=== PATIENT | male | born 1980 | race Caucasian/White ===

== ENCOUNTER 2016-08-04 13:30 | Emergency (ER) | payer OTHER ==
[~2016-08-04] VITALS: Ht 193 cm; Wt 113.4 kg
--- NOTE | ~2016-08-04 | EKG ---
[place], [place] ELECTROCARDIOGRAM REPORT NAME: JENNY MCKINNEY UNIT #: [id number] ROOM: DOCTOR: REZA COPPOLA MD BIRTHDATE: [birth year] DOS: 08/04/2016 TIME: 1349 hours. Normal sinus rhythm at 86 beats per minute. The tracing is normal. No previous tracing is available for comparison. REZA COPPOLA MD CM:EKGRPT:ELECTROCARDIOGRAM REPORT [id number] REZA COPPOLA MD
[~2016-08-04 13:30] MED LIST: ANAPROX DS550 MG PO; CLINDAMYCIN HC300 MG PO; CYCLOBENZAPRINE5 M3 PO; LEVAQUIN750 M1 PO; Motrin,Rufen800 MG PO; NASONEX0.05 MG/AC NAS
[2016-08-04 13:53] LABS: BASO # 0.1 10*3/uL (0.0-0.1); BASO % 0.7 % (0.0-1.0); EOS # 0.3 10*3/uL (0.0-0.4); EOS % 3.7 % (1.0-4.0); HEMATOCRIT 47.3 % (42.0-52.0); HEMOGLOBIN 16.4 g/dl (14.0-18.0); LYMPH # 2.1 10*3/uL (1.3-4.4); LYMPH % 29.7 % (27.0-41.0); MEAN CELL VOLUME 83.7 fl (80.0-94.0); MEAN CORPUSCULAR HGB CONC 34.7 g/dl (33.0-37.0); MEAN PLATELET VOLUME 10.8 fl (9.6-12.3); MONO # 0.6 10*3/uL (0.1-1.0); MONO % 8.2 % (3.0-9.0); NEUT % 57.3 % (47.0-73.0); PLATELET COUNT AUTOMATED 183 10*3/uL (130-400); RED BLOOD COUNT 5.65 10*6/uL (4.50-5.90); RED CELL DISTRI WIDTH 12.9 % (0-14.5)
[2016-08-04 14:08] LABS: ALBUMIN 3.8 gm/dl (3.1-4.5); ALKALINE PHOSPHATASE 58 U/L (45-117); BILIRUBIN, TOTAL 0.5 mg/dl (0.2-1.0); BUN 12 mg/dl (7-24); CARBON DIOXIDE 26 mmol/L (21-32); CHLORIDE 108 mmol/L (98-107); EST GLOM FILT AFRICAN AMERICAN > 60 ml/min; GLUCOSE 115 mg/dL (65-99); POTASSIUM 3.8 mmol/L (3.5-5.1); SGOT/AST 33 IU/L (3-35); SGPT/ALT 64 U/L (12-78); SODIUM 144 mmol/L (136-145); TOTAL PROTEIN 7.5 gm/dL (6.4-8.2)
[2016-08-04 14:20] LABS: TROPONIN I < 0.015 ng/ml (<0.5)
[2016-08-04] MEDS ORDERED: DRAMAMINE LESS25 MG PO (14:55)
== END 2016-08-04 15:12 | disposition home or self-care (01) ==
LOC: ED 13:30
PROVIDERS: Nurse Practitioner Family
DX: R42 Dizziness and giddiness (principal); R03.0 Elevated blood-pressure reading, without diagnosis of hypertension

== ENCOUNTER 2016-11-16 07:08 | Emergency (ER) | payer OTHER ==
[~2016-11-16] VITALS: Ht 195.5 cm; Wt 106.6 kg
[~2016-11-16 07:08] MED LIST changes: +DRAMAMINE LESS25 MG PO
== END 2016-11-16 08:04 | disposition home or self-care (01) ==
LOC: ED 07:08
DX: T15.92XA Foreign body on external eye, part unspecified, left eye, initial encounter (principal); Y92.9 Unspecified place or not applicable

== ENCOUNTER → 2017-01-19 | Outpatient (CLI) | payer OTHER | END | disposition home or self-care (01) | LOC: US 17:07 | DX: R53.83 Other fatigue (principal); R79.89 Other specified abnormal findings of blood chemistry ==

== ENCOUNTER 2017-04-21 21:11 | Emergency (ER) | payer OTHER ==
[~2017-04-21] VITALS: Ht 195.5 cm; Wt 106.6 kg
[2017-04-21] MEDS ORDERED: ANAPROX DS550 MG PO (22:30)
== END 2017-04-21 23:21 | disposition home or self-care (01) ==
LOC: ED 21:11
DX: S20.229A Contusion of unspecified back wall of thorax, initial encounter (principal); W18.39XA Other fall on same level, initial encounter; Y93.89 Activity, other specified; Y92.89 Other specified places as the place of occurrence of the external cause; Y99.8 Other external cause status

== ENCOUNTER 2018-01-12 06:08 | Emergency (ER) | payer SELFPAY ==
[~2018-01-12] VITALS: Ht 195.5 cm; Wt 106.6 kg
[2018-01-12] MEDS ORDERED: CYCLOBENZAPRINE10 MG PO (06:21)
[2018-01-12] MEDS ORDERED: PREDNISONE50 MG PO (06:21)
[2018-01-12] MEDS ORDERED: IBU800 MG PO (06:21)
== END 2018-01-12 06:49 | disposition home or self-care (01) ==
LOC: ED 06:08
DX: M54.6 Pain in thoracic spine (principal); R20.0 Anesthesia of skin; Z90.49 Acquired absence of other specified parts of digestive tract

== ENCOUNTER 2018-01-20 11:55 | Emergency (ER) | payer BC ==
[~2018-01-20] VITALS: Ht 195.5 cm; Wt 106.6 kg
[~2018-01-20 11:55] MED LIST changes: +CYCLOBENZAPRINE10 MG PO; +IBU800 MG PO; +PREDNISONE50 MG PO
[2018-01-20 12:30] LABS: BASO # 0.1 10*3/uL (0.0-0.1); BASO % 0.8 % (0.0-1.0); EOS # 0.3 10*3/uL (0.0-0.4); EOS % 3.2 % (1.0-4.0); HEMATOCRIT 46.8 % (42.0-52.0); HEMOGLOBIN 16.1 g/dl (14.0-18.0); LYMPH # 1.9 10*3/uL (1.3-4.4); LYMPH % 24.1 % (27.0-41.0); MEAN CELL VOLUME 84.8 fl (80.0-94.0); MEAN CORPUSCULAR HGB 29.2 pg (27.0-31.0); MEAN CORPUSCULAR HGB CONC 34.4 g/dl (33.0-37.0); MEAN PLATELET VOLUME 11.5 fl (9.6-12.3); MONO # 0.6 10*3/uL (0.1-1.0); MONO % 7.8 % (3.0-9.0); NEUT % 63.8 % (47.0-73.0); PLATELET COUNT AUTOMATED 183 10*3/uL (130-400); RED BLOOD COUNT 5.52 10*6/uL (4.50-5.90); RED CELL DISTRI WIDTH 13.2 % (0-14.5); WHITE BLOOD COUNT 7.8 10*3/uL (4.8-10.8)
[2018-01-20 13:37] LABS: ALBUMIN 3.4 gm/dl (3.1-4.5); ALKALINE PHOSPHATASE 44 U/L (45-117); BUN 17 mg/dl (7-24); CHLORIDE 108 mmol/L (98-107); CREATININE 1.22 mg/dL (0.70-1.30); LIPASE 124 U/L (73-393); SGOT/AST 35 IU/L (3-35); SGPT/ALT 47 U/L (12-78); SODIUM 142 mmol/L (136-145); TOTAL PROTEIN 6.3 gm/dL (6.4-8.2)
[2018-01-20] MEDS ORDERED: Motrin,Rufen800 MG PO (14:09)
== END 2018-01-20 14:10 | disposition home or self-care (01) ==
LOC: ED 11:55
PROVIDERS: Emergency Medicine
DX: R51 Headache (principal); M54.2 Cervicalgia; R42 Dizziness and giddiness; Z79.899 Other long term (current) drug therapy; Z90.49 Acquired absence of other specified parts of digestive tract

== ENCOUNTER 2018-05-08 08:24 | Emergency (ER) | payer SELFPAY ==
[~2018-05-08] VITALS: Ht 195.5 cm; Wt 113.4 kg
[2018-05-08 08:46] LABS: BILIRUBIN NEGATIVE (NEGATIVE); BLOOD NEGATIVE (NEGATIVE); CLARITY CLEAR (CLEAR); COLOR YELLOW (YELLOW); GLUCOSE TRACE (NEGATIVE); KETONE NEGATIVE (NEGATIVE); LEUKO ESTERASE NEGATIVE (NEGATIVE); NITRITE NEGATIVE (NEGATIVE); SPECIFIC GRAVITY >= 1.030 (1.005-1.030); UROBILINOGEN 0.2 E.U./dl (0.2-1.0)
[2018-05-08 08:58] LABS: BACTERIA TRACE; WBC 0-2 wbc/hpf (0-5)
[2018-05-08 09:41] LABS: BASO # 0.1 10*3/uL (0.0-0.1); BASO % 0.9 % (0.0-1.0); EOS # 0.3 10*3/uL (0.0-0.4); EOS % 3.6 % (1.0-4.0); HEMATOCRIT 46.6 % (42.0-52.0); HEMOGLOBIN 16.2 g/dl (14.0-18.0); LYMPH # 2.2 10*3/uL (1.3-4.4); LYMPH % 27.4 % (27.0-41.0); MEAN CELL VOLUME 85.5 fl (80.0-94.0); MEAN CORPUSCULAR HGB 29.7 pg (27.0-31.0); MEAN CORPUSCULAR HGB CONC 34.8 g/dl (33.0-37.0); MEAN PLATELET VOLUME 10.5 fl (9.6-12.3); MONO # 0.7 10*3/uL (0.1-1.0); NEUT # 4.7 10*3/uL (2.3-7.9); NEUT % 58.8 % (47.0-73.0); PLATELET COUNT AUTOMATED 159 10*3/uL (130-400); RED BLOOD COUNT 5.45 10*6/uL (4.50-5.90)
[2018-05-08 09:59] LABS: ALBUMIN 3.7 gm/dl (3.1-4.5); ALKALINE PHOSPHATASE 50 U/L (45-117); BUN 16 mg/dl (7-24); CHLORIDE 107 mmol/L (98-107); CREATININE 1.22 mg/dL (0.70-1.30); POTASSIUM 4.4 mmol/L (3.5-5.1); SGOT/AST 22 IU/L (3-35); SGPT/ALT 52 U/L (12-78); SODIUM 141 mmol/L (136-145); TOTAL PROTEIN 7.3 gm/dL (6.4-8.2)
[2018-05-08] MEDS ORDERED: ROBAXIN500 M1 PO (10:49)
[2018-05-08] MEDS ORDERED: NAPROSYN500 MG PO (10:49)
[2018-05-08] MEDS ORDERED: CEFUROXIME AXE500 MG PO (10:49)
== END 2018-05-08 11:09 | disposition home or self-care (01) ==
LOC: ED 08:24
PROVIDERS: Emergency Medicine; Nurse Practitioner Family
DX: S39.011A Strain of muscle, fascia and tendon of abdomen, initial encounter (principal); R30.0 Dysuria; M54.5 Low back pain; Z90.49 Acquired absence of other specified parts of digestive tract; X58.XXXA Exposure to other specified factors, initial encounter; Y93.89 Activity, other specified; Y92.89 Other specified places as the place of occurrence of the external cause; Y99.8 Other external cause status

== ENCOUNTER 2020-03-27 08:22 | Emergency (ER) | payer OTHER ==
[~2020-03-27] VITALS: Ht 195.5 cm; Wt 113.4 kg
[~2020-03-27 08:22] MED LIST changes: +CEFUROXIME AXE500 MG PO; +NAPROSYN500 MG PO; +ROBAXIN500 M1 PO
[2020-03-27 09:22] LABS: BASO # 0.1 10*3/uL (0.0-0.1); BASO % 0.9 % (0.0-1.0); EOS # 0.2 10*3/uL (0.0-0.4); EOS % 3.2 % (1.0-4.0); HEMATOCRIT 46.9 % (42.0-52.0); LYMPH # 1.6 10*3/uL (1.3-4.4); MEAN CORPUSCULAR HGB 28.3 pg (27.0-31.0); MEAN CORPUSCULAR HGB CONC 33.3 g/dl (33.0-37.0); MEAN PLATELET VOLUME 10.8 fl (9.6-12.3); MONO # 0.5 10*3/uL (0.1-1.0); MONO % 8.7 % (3.0-9.0); NEUT # 3.5 10*3/uL (2.3-7.9); PLATELET COUNT AUTOMATED 167 10*3/uL (130-400); RED BLOOD COUNT 5.52 10*6/uL (4.50-5.90); RED CELL DISTRI WIDTH 12.9 % (0-14.5); WHITE BLOOD COUNT 5.9 10*3/uL (4.8-10.8)
[2020-03-27 09:35] LABS: ALBUMIN 3.9 gm/dl (3.1-4.5); ALKALINE PHOSPHATASE 54 U/L (45-117); BUN 16 mg/dl (7-24); CHLORIDE 109 mmol/L (98-107); POTASSIUM 3.9 mmol/L (3.5-5.1); SGOT/AST 25 IU/L (3-35); SGPT/ALT 64 U/L (12-78); SODIUM 139 mmol/L (136-145); TOTAL PROTEIN 7.1 gm/dL (6.4-8.2)
== END 2020-03-27 11:02 | disposition home or self-care (01) ==
LOC: ED 08:22
PROVIDERS: Emergency Medicine
DX: S86.912A Strain of unspecified muscle(s) and tendon(s) at lower leg level, left leg, initial encounter (principal); X58.XXXA Exposure to other specified factors, initial encounter; Y93.89 Activity, other specified; Y92.89 Other specified places as the place of occurrence of the external cause; Y99.8 Other external cause status

== ENCOUNTER 2021-02-11 06:46 | Emergency (ER) | payer OTHER ==
[~2021-02-11] VITALS: Ht 195.5 cm; Wt 121.1 kg
[2021-02-11 07:41] LABS: BILIRUBIN Negative (Negative); BLOOD Negative (Negative); CLARITY Clear (Clear); COLOR Yellow (Yellow); GLUCOSE 1+ (Negative); KETONE Negative (Negative); LEUKO ESTERASE Negative (Negative); NITRITE Negative (Negative); SPECIFIC GRAVITY 1.025 (1.001-1.030)
[2021-02-11 07:56] LABS: BACTERIA TRACE
[2021-02-11 07:57] LABS: MUCOUS 2+
[2021-02-11] MEDS ORDERED: PREDNISONE50 MG PO (09:52)
[2021-02-11] MEDS ORDERED: CYCLOBENZAPRINE5 M3 PO (09:52)
== END 2021-02-11 10:01 | disposition home or self-care (01) ==
LOC: ED 06:46
PROVIDERS: Internal Medicine
DX: M54.5 Low back pain (principal); R10.31 Right lower quadrant pain; Z90.49 Acquired absence of other specified parts of digestive tract

== ENCOUNTER → 2021-04-23 | Outpatient (CLI) | payer OTHER ==
[2021-04-23 11:32] LABS: BASO % 0.6 % (0.0-1.0); EOS # 0.2 10*3/uL (0.0-0.4); EOS % 3.4 % (1.0-4.0); HEMATOCRIT 46.4 % (42.0-52.0); LYMPH # 1.9 10*3/uL (1.3-4.4); LYMPH % 30.5 % (27.0-41.0); MEAN CELL VOLUME 86.7 fl (80.0-94.0); MEAN CORPUSCULAR HGB CONC 33.4 g/dl (33.0-37.0); MEAN PLATELET VOLUME 11.3 fl (9.6-12.3); MONO # 0.6 10*3/uL (0.1-1.0); MONO % 8.9 % (3.0-9.0); NEUT # 3.5 10*3/uL (2.3-7.9); NEUT % 56.3 % (47.0-73.0); PLATELET COUNT AUTOMATED 163 10*3/uL (130-400); RED BLOOD COUNT 5.35 10*6/uL (4.50-5.90); RED CELL DISTRI WIDTH 13.1 % (0-14.5); WHITE BLOOD COUNT 6.2 10*3/uL (4.8-10.8)
[2021-04-23 12:07] LABS: ALBUMIN 3.8 gm/dl (3.1-4.5); BUN 18 mg/dl (7-24); CHLORIDE 108 mmol/L (98-107); POTASSIUM 3.9 mmol/L (3.5-5.1); SODIUM 141 mmol/L (136-145)
[2021-04-23 12:10] LABS: ALKALINE PHOSPHATASE 58 U/L (45-117); CHOLESTEROL 131 mg/dL (<200); CREATININE 1.26 mg/dL (0.70-1.30); LDL CHOLESTEROL 58 mg/dL (9-159); SGOT/AST 48 IU/L (3-35); SGPT/ALT 121 U/L (12-78); TOTAL PROTEIN 7.5 gm/dL (6.4-8.2); TRIGLYCERIDES 184 mg/dl (<150)
== END | disposition home or self-care (01) ==
LOC: LAB 10:58
PROVIDERS: Student in an Organized Health Care Education/Training Program; ATTEND Family Medicine
DX: Z13.220 Encounter for screening for lipoid disorders (principal); R05.9 Cough, unspecified; R53.83 Other fatigue; R73.9 Hyperglycemia, unspecified

== ENCOUNTER → 2022-04-07 | Outpatient (CLI) | payer OTHER | END | disposition home or self-care (01) | LOC: RAD 15:05 | PROVIDERS: ATTEND Family Medicine | DX: U07.1 COVID-19 (principal); R50.81 Fever presenting with conditions classified elsewhere; Z90.49 Acquired absence of other specified parts of digestive tract; M47.814 Spondylosis without myelopathy or radiculopathy, thoracic region ==

== ENCOUNTER → 2022-04-30 | Outpatient (CLI) | payer OTHER | END | disposition home or self-care (01) | LOC: RAD 12:33 | PROVIDERS: ATTEND Family Medicine | DX: M25.552 Pain in left hip (principal) ==

== ENCOUNTER → 2022-06-22 | Outpatient (CLI) | payer OTHER | END | disposition home or self-care (01) | LOC: RAD 15:27 | PROVIDERS: ATTEND Chiropractor Orthopedic | DX: M47.817 Spondylosis without myelopathy or radiculopathy, lumbosacral region (principal); M25.78 Osteophyte, vertebrae ==

== ENCOUNTER → 2022-08-25 | Outpatient (CLI) | payer OTHER | END | disposition home or self-care (01) | LOC: MRI 01:07 | PROVIDERS: ATTEND Chiropractor Orthopedic | DX: M43.16 Spondylolisthesis, lumbar region (principal); M48.061 Spinal stenosis, lumbar region without neurogenic claudication; M51.26 Other intervertebral disc displacement, lumbar region ==

== ENCOUNTER → 2022-10-12 | Outpatient (CLI) | payer OTHER | END | disposition home or self-care (01) | LOC: LAB 16:12 | PROVIDERS: ATTEND Physical Therapist | DX: Z01.812 Encounter for preprocedural laboratory examination (principal) ==